=== PATIENT | female | born 1980 | race African-American/Black ===

== ENCOUNTER 2018-10-11 06:02 | Day surgery (SDC) | payer OTHER ==
[2018-10-10 10:03] VITALS: BMI 26.4
[2018-10-11] MEDS ORDERED: MIDAZOLAM HCL 2 MG/2 ML SINGLE DOSE VIAL ONE (07:02)
[2018-10-11] MEDS ORDERED: SUCCINYLCHOLINE CHLORIDE 200 MG/10 ML VIAL ONE (07:04)
[2018-10-11] MEDS ORDERED: PROPOFOL 20 ML ONE (07:05)
[2018-10-11] MEDS ORDERED: LIDOCAINE HCL 2% (20ML MULTI-DOSE VIAL) NR ONE (07:32)
[2018-10-11] MEDS ORDERED: LIDOCAINE HCL 1% PRESERVATIVE FREE - 30ML VIAL ONE (07:32)
[2018-10-11] MEDS ORDERED: BUPIVACAINE HCL/PF 0.5% (5MG/ML) 10 ML VIAL ONE (07:32)
[2018-10-11] MEDS ORDERED: BUPIVACAINE HCL/PF 2.5 MG/ML - 30 ML VIAL IJ ONE (08:16)
[2018-10-11] MEDS ORDERED: DEXAMETHASONE SOD PHOSPHATE 4 MG/1 ML VIAL ONE (08:16)
[2018-10-11] MEDS ORDERED: oxyCODONE HCL 5 MG TABLET PO PRN ×2 (08:35)
[2018-10-11] MEDS ORDERED: ONDANSETRON 4 MG/2 ML VIAL IVPUSH PRN (08:35)
[2018-10-11 09:01] VITALS: PULSE 60; TEMP 97.7
[2018-10-11 10:03] VITALS: BP 109/67
--- NOTE | 2018-10-14 09:02 | OP ---
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 PROCEDURE: Right foot, 5th digit proximal interphalangeal joint arthroplasty ANESTHESIA: Local with IV sedation. SURGEON: Laurel Golden DPM HEMOSTASIS: Pneumatic ankle tourniquet set at 250 mmHg. ESTIMATED BLOOD LOSS: Minimal. MATERIALS: 3-0 Vicryl and 4-0 nylon. PATHOLOGY: Bone and soft tissue. INJECTABLES: Preoperatively, 5 mL of a 1-to-1 mixture of 2% lidocaine plain and 0.5% Marcaine plain. Postoperatively, a total of 4 mL of and 8-to-2 mixture of 0.5% Marcaine and Decadron. CONDITION: Stable. COMPLICATIONS: None. DESCRIPTION OF PROCEDURE: The patient was brought to the operating room and placed on the operating table in the supine position. A pneumatic ankle tourniquet was then placed on the patients right ankle following IV sedation. Local anesthesia was obtained utilizing 5 mL of a 1-to-1 mixture of 2% lidocaine plain and 0.5% Marcaine plain. The right foot was then scrubbed, prepped, and draped in the usual aseptic manner. An Esmarch bandage was then utilized to exsanguinate the patients right foot, and the tourniquet was then inflated. Attention was then directed to the patients right foot 5th digit, which was noted to be in an adductovarus deformity and slightly underlapping the 4th digit. At this time, 2 converging semi-elliptical incisions were made running dorsal distal medial to proximal lateral of the proximal interphalangeal joint of the 5th digit. Incision was then deepened through subcutaneous tissues with care to retract all the neurovascular structures. The right foot 5th digit ellipse was then removed with sharp and blunt dissection and passed from the operative field. All bleeders were cauterized and ligated as necessary. A transverse tenotomy and capsulotomy was then performed to the proximal interphalangeal joint of the 5th digit of the right foot. The head of the proximal phalanx was then freed of its soft tissue attachments. A small sagittal saw was then used to resect the head of the proximal phalanx, which was then passed from the operative field and sent for pathology. The phalanx was then smoothed of all rough edges utilizing a bone rasp. The wound was then flushed with copious amounts of sterile saline, and extensor tendon was then reapproximated using 3-0 Vicryl. Skin was then reapproximated using 4-0 nylon. Upon completion of the procedure, a total of 4 mL of an 8-to-2 mixture of 0.5% Marcaine plain and Decadron was then infiltrated to the surgical site. Tourniquet was then deflated, and immediate capillary return to all digits. The incision was dressed with Xeroform and covered with a sterile compressive dressing consisting of 4x4s and Dara. Coban was then used to wrap the foot. Patient tolerated the procedure well and was transported from the operating room to the recovery room with all vital signs stable and neurovascular status intact to the right foot. Following a period of postoperative monitoring , the patient was discharged and was given instructions and prescriptions which were discussed prior to the surgery. Patient will follow up in the private office in 1 week. LAUREL GOLDEN DPM/[id number] MTDKarina
--- NOTE | 2018-10-15 15:25 | PATH ---
Surgical Pathology Report Patient Name: STELLA PARSON [facility]. Rec. #: [id number] /Age/Gender: 1980 (Age: 38) / F Account: [id number] Location: [facility] Taken: 10/11/2018 Received: 10/11/2018 Reported: 10/15/2018 Physicians: Flakito Sykes DPM Specimen(s) Received BONE AND SOFT TISSUE RIGHT FIFTH TOE Clinical History Painful right fifth digit hammertoe Final Diagnosis BONE AND SOFT TISSUE, FIFTH TOE, RIGHT, ARTHROPLASTY: BONE WITH DEGENERATIVE CHANGES, UNREMARKABLE SKIN, AND DENSE FIBROCONNECTIVE TISSUE. Electronically Signed Anisa Patel M.D. Gross Description Received in formalin labeled "bone and soft tissue right fifth toe," are 2 meyers portions of bone measuring 1.0 x 0.6 x 0.3 cm and 1.1 x 0.7 x 0.4 cm. Also received within the same container is a 1.5 x 0.7 cm meyers, elliptical, unoriented portion of skin. Health Promotion Officer sections are submitted in one cassette, following decalcification. /10/14/2018 saudi10/14/2018
== END 2018-10-11 10:05 | disposition home or self-care (01) ==
LOC: FASU 06:02
PROVIDERS: ATTEND Podiatrist
PROC: 0SRP0JZ Replacement of Right Toe Phalangeal Joint with Synthetic Substitute, Open Approach (ICD-10-PCS; principal; 2018-10-11 07:30)
DX: M20.41 Other hammer toe(s) (acquired), right foot (principal)
CPT/HCPCS: 73630-TC-RT-FY; 81025; 88304-TC; 88311-TC